=== PATIENT | female | born 1995 | race Hispanic/Latino ===

== ENCOUNTER 2018-10-22 06:22 | Emergency (ER) | payer BC, SELFPAY ==
--- NOTE | 2018-10-22 06:24 | ED.RN ---
CALLED FOR EKG PER RN REQUEST, NO OLD EKGS IN MUSE
[2018-10-22 06:26] VITALS: BP 123/81; PULSE 72; RESP 18; TEMP 37.3; O2SAT 98; BMI 24.1
--- NOTE | 2018-10-22 07:06 | EKG12_ITS ---
Test Reason : CP Blood Pressure : / mmHG Vent. Rate : 079 BPM Atrial Rate : 079 BPM P-R Int : 148 ms QRS Dur : 082 ms QT Int : 380 ms P-R-T Axes : 062 039 013 degrees QTc Int : 435 ms Normal sinus rhythm Normal ECG Confirmed by BRIAN CHRIS, BRITTNEY ([id number]), graphic editor PINKY CHANCE ([id number]) on 10/23/2018 9:02:48 AM Referred By: RU Confirmed By:BRITTNEY TORRES MD
--- NOTE | 2018-10-22 07:06 | RAD_ITS ---
STUDY: X-RAY CHEST REASON FOR EXAM: Female, 23 years old. Chest tightness TECHNIQUE: PA and lateral views of the chest. COMPARISON: None. FINDINGS: The lungs are clear and expanded. There is no demonstrated pleural abnormality. Normal size heart. Normal mediastinum and peña. Normal visualized pulmonary arteries. Normal visualized aortic arch and descending thoracic aorta. Normal visualized thoracic spine. Normal visualized ribs, clavicles, and shoulders. There is no demonstrated abnormality of the visualized soft tissue structures of the upper abdomen. RAD/Chest PA and Lateral IMPRESSION: Normal x-ray examination of the chest. Electronically Signed: Paulino Rodrigues DO at 8:09 EDT Tel , Service support ,
--- NOTE | 2018-10-22 07:14 | ED.VISSUMM ---
- ER Visit Summary Date of Service: 10/22/18 Chief Complaint: Chest tightness History of Present Illness: The patient is a 23 F who presents the emergency department with chest pain. Has been for the past several days as long as she is sitting or standing she feels fine. States when she goes to lay down she feels a tightness rise from her lower chest up to her throat. It is worse when she is on her stomach. States that when that happens she feels her heart racing. She denies any nausea or vomiting. She notes no difficulty eating food. She denies any cough or fevers but does state that time she has hot flashes. She states that when the weather was warm she was feeling burning in her epigastrium. Physical Examination: Afebrile vital signs are stable Gen: Well-nourished well-developed Head: Normocephalic atraumatic Eyes: Perrl EOMI ENT: TMs clear no rhinorrhea moist mucous membranes Neck: Supple no lymphadenopathy no JVD nontender CVS: Regular rate rhythm no murmurs normal S1-S2 Respiratory: No distress clear to auscultation bilaterally chest nontender Abdomen: Soft nontender nondistended normal bowel sounds no masses Back: Nontender Extremity: Nontender no edema Skin: Normal color no rash Neuro: alert orientated ?3 CN II-XII intact normal strength sensation reflexes gait cerebellar Psych: Normal affect normal mood Test Results: EKG shows a normal sinus rhythm at a rate of 79 without ectopy no concerning features of ACS. CBC BMP opponent and test were negative. Chest x-ray showed a normal mediastinal silhouette. No evidence of effusions or pulmonary findings. Emergency Department Course and Treatment: When I lie the patient down she has no changes in heart rate or breathing. At this point I do not have a clear explanation for the patient's symptoms when she lays down. This could be reflux however she does note some epigastric pain but only on hot days. It is reasonable to try a Pepcid trial and have her follow-up with primary care return if worsening or concerns Impression: 1. Chest pain This note was generated with [employer] dictation software. It may contain incorrect words, spelling, and punctuation that were not noted in review of the chart prior to signing ED Disposition - Plan for ED Patient: Disposition: Home or Assisted Living Instructions: CHEST PAIN, Uncertain Cause, What Is GERD? Prescriptions: Famotidine [Pepcid] 20 mg PO BID #28 tab Prescription Printed Referrals: Rogelio Tan MD [STAFF PHYSICIAN] - 1-2 Weeks
[2018-10-22 07:35] LABS: Absolute Lymphocyte Count 1.51 X10^3/uL (0.83-4.51); Absolute Neutrophil Count 4.2 X10^3/uL (2.0-7.7); Basophil# 0.03 X10^3/uL; Basophil% 0.5 % (0-1); Eosinophil# 0.04 X10^3/uL; Eosinophils% 0.7 % (0-5); Hematocrit 43.7 % (37-47); Hemoglobin 14.8 g/dL (12.0-15.0); Lymphocyte # 1.51 X10^3/ul (4.0); Lymphocyte % 24.6 % (19-41); Mean Corp Hgb Conc 33.9 g/dL (32-36); Mean Corpuscular Hgb 31.2 pg (27.0-32.0); Monocyte# 0.36 X10^3/uL; Monocyte% 5.9 % (0-10); NRBC Flagged by Analyzer 0 % (0-5); Neutrophil # 4.19 X10^3/uL (2.7-7.7); Platelet Count 264 K/mm3 (150-450); RBC Distribution Width CV 13.6 % (11.6-14.6); RBC Distribution Width SD 46.5 fl (35.1-43.9); Red Blood Count 4.75 M/mm3 (4.2-5.4); White Blood Count 6.2 K/mm3 (4.4-11.0)
[2018-10-22 07:40] LABS: Internal QC Validated? YES +Cl - CLEAR BKGD; Pregnancy, Serum, hCG Quali. NEGATIVE Negative
[2018-10-22 07:48] LABS: Anion Gap 1 (5-15); BUN 10 mg/dL (7-18); BUN/Creat Ratio 12.6 RATIO (10-20); Calcium,Total 9.1 mg/dL (8.5-10.1); Chloride 106 mmol/L (98-107); EST Glomerular Filtration Rate 95 mL/min (>60); Est Glom Filt Rate - Afr Amer 115 mL/min (>60); Estimated Creatinine Clearance 102.39 ml/min; Glucose 94 mg/dL (74-106); Sodium Level 138 mmol/L (136-145)
--- NOTE | 2018-10-22 08:17 | NURSING ---
NO OLD EKGS
[2018-10-22 08:39] VITALS: BP 103/77; PULSE 62; RESP 15; O2SAT 98
== END 2018-10-22 08:40 | disposition home or self-care (01) ==
PROVIDERS: Emergency Provider Emergency Medicine
DX: R07.89 Other chest pain (principal); R00.2 Palpitations
CPT/HCPCS: 71046; 80048; 84484; 84703; 85025; 93005; 99284; A4216